=== PATIENT | male | born 1980 | race Caucasian/White ===

== ENCOUNTER 2018-04-18 20:36 | Emergency (ER) | payer BC, OTHER ==
[~2018-04-18] VITALS: Ht 175.3 cm; Wt 104.5 kg
[2018-04-18 20:43] VITALS: TEMP 36.9; Ht 175.3 cm; Wt 104.5 kg
[2018-04-18] MEDS ORDERED: SODIUM CHLORIDE 0.9% 1000ML 1,000 ML IV STA (21:29)
[2018-04-18] MEDS ORDERED: GI COCKTAIL PO STA (21:29)
[2018-04-18] MEDS ORDERED: FAMOTIDINE 20 MG TAB PO ONE (21:30)
[2018-04-18 21:31] VITALS: O2SAT 97
[2018-04-18] MEDS ORDERED: LIDOCAINE HCL 2% VISC SOLN 20 ML UDC ONE (21:33)
[2018-04-18] MEDS ORDERED: ALUMINUM/MAGNESIUM SUSP 30 ML UDC ONE (21:33)
--- NOTE | 2018-04-18 21:34 | EMERGENCY ROOM VISIT NOTE ---
History Report prepared by Amaibasher: Paola Alba Under the Supervision of: Dr. Addy Sylvester M.D. First contact with patient: 21:25 Chief Complaint: CHEST PAIN Stated Complaint: DISCOMFORT IN CHEST AREA,BODY WEARY AND HEAVY Nursing Triage Summary: Midsrenal nonradiating chest pain x 1 hr. Pt describes it as pressure. Pt denies SOD or any other sx's. Pt has no PMH of cardiac problems. History of Present Illness The patient is a 37 year old male who presents to the Emergency Room with complaints of chest pain beginning at 1930 tonight. He describes his pain as "discomfort and heaviness" in the center of his chest but notes this does not feel like his past acid reflux. However, he reports he ate about 30 minutes prior to his episode. He notes his pain is slightly better than when it began. The patient reports his grandfather had a heart attack but denies any nausea, SOB, fevers, chills, cough, or recent long travel. Source of History: patient Onset: 0 tonight Position: chest (center) Quality: other ("discomfort and heaviness" ) Associated Symptoms: No fevers, No chills, No SOB, No nausea Note: Negative recent long travel Review of Systems See HPI for pertinent positives and negatives. A total of ten systems were reviewed and were otherwise negative. Past Medical & Surgical Medical Problems: (1) No Known Active Medical Problems Family History Cancer Diabetes mellitus FHx: kidney disease High blood pressure Social History Smoking Status: Never Smoker Smokeless Tobacco Use: No Marital Status: single Housing Status: lives alone Occupation Status: employed Current/Historical Medications Miscellaneous Medications None (Patient States No Home Meds) Allergies Coded Allergies: Erythromycin (Verified Allergy, Intermediate, HIVES, RASH, 06/06/13) Physical Exam Vital Signs Date Time Temp Pulse Resp B/P (MAP) Pulse Ox O2 Delivery O2 Flow Rate FiO2 04/18/18 22:51 92 24 134/97 97 04/18/18 22:30 90 16 154/94 95 Room Air 04/18/18 21:44 96 04/18/18 21:31 97 Room Air 04/18/18 21:29 97 Room Air 04/18/18 20:43 36.9 96 18 157/107 97 Room Air Physical Exam GENERAL: Awake, alert, well-appearing, in no distress HENT: Normocephalic, atraumatic. Oropharynx unremarkable. Mucous membranes are dry. EYES: Normal conjunctiva. Sclera non-icteric. NECK: Supple. No nuchal rigidity. FROM. No JVD. RESPIRATORY: Clear to auscultation. CARDIAC: Regular rate, normal rhythm. Extremities warm and well perfused. Pulses equal. ABDOMEN: Soft, non-distended. Mild epigastric discomfort without discrete ttp. No rebound or guarding. No masses. RECTAL: Deferred. MUSCULOSKELETAL: Chest examination reveals no tenderness. The back is symmetrical on inspection without obvious abnormality. There is no CVA tenderness to palpation. No joint edema. LOWER EXTREMITIES: Calves are equal size bilaterally and non-tender. No edema. No discoloration. NEURO: Normal sensorium. No sensory or motor deficits noted. SKIN: No rash or jaundice noted. Medical Decision & Procedures ER Provider Diagnostic Interpretation: Radiology results as stated below per my review and radiologist interpretation: SINGLE VIEW CHEST CLINICAL HISTORY: Atypical chest pain. FINDINGS: An AP, portable, upright chest radiograph is compared to study dated 06/06/2013. The cardiomediastinal silhouette is unremarkable. The lungs and pleural spaces are clear. No pneumothorax is seen. The bony thorax is grossly intact. IMPRESSION: No active disease in the chest. Electronically signed by: Gregory Sanchez M.D. 04/18/2018 9:56 PM Laboratory Results 04/18/18 21:25 Red Blood Count 5.02, Mean Corpuscular Volume 89.2, Mean Corpuscular Hemoglobin 31.7, Mean Corpuscular Hemoglobin Concent 35.5, Mean Platelet Volume 10.0, Neutrophils (%) (Auto) 69.4, Lymphocytes (%) (Auto) 19.7, Monocytes (%) (Auto) 6.9, Eosinophils (%) (Auto) 2.9, Basophils (%) (Auto) 0.6, Neutrophils # (Auto) 7.44, Lymphocytes # (Auto) 2.11, Monocytes # (Auto) 0.74, Eosinophils # (Auto) 0.31, Basophils # (Auto) 0.06 04/18/18 21:25 Test 04/18/18 21:25 White Blood Count 10.71 K/uL (4.8-10.8) Red Blood Count 5.02 M/uL (4.7-6.1) Hemoglobin 15.9 g/dL (14.0-18.0) Hematocrit 44.8 % (42-52) Mean Corpuscular Volume 89.2 fL (80-100) Mean Corpuscular Hemoglobin 31.7 pg (25-34) Mean Corpuscular Hemoglobin Concent 35.5 g/dl (32-36) Platelet Count 232 K/uL (130-400) Mean Platelet Volume 10.0 fL (7.4-10.4) Neutrophils (%) (Auto) 69.4 % Lymphocytes (%) (Auto) 19.7 % Monocytes (%) (Auto) 6.9 % Eosinophils (%) (Auto) 2.9 % Basophils (%) (Auto) 0.6 % Neutrophils # (Auto) 7.44 K/uL (1.4-6.5) Lymphocytes # (Auto) 2.11 K/uL (1.2-3.4) Monocytes # (Auto) 0.74 K/uL (0.11-0.59) Eosinophils # (Auto) 0.31 K/uL (0-0.5) Basophils # (Auto) 0.06 K/uL (0-0.2) RDW Standard Deviation 38.2 fL (36.4-46.3) RDW Coefficient of Variation 11.9 % (11.5-14.5) Immature Granulocyte % (Auto) 0.5 % Immature Granulocyte # (Auto) 0.05 K/uL (0.00-0.02) Anion Gap 7.0 mmol/L (3-11) Est Creatinine Clear Calc Drug Dose 130.7 ml/min Estimated GFR () 121.3 Estimated GFR (Non- 104.6 BUN/Creatinine Ratio 12.7 (10-20) Calcium Level 9.0 mg/dl (8.5-10.1) Total Bilirubin 0.4 mg/dl (0.2-1) Direct Bilirubin 0.1 mg/dl (0-0.2) Aspartate Amino Transf (AST/SGOT) 21 U/L (15-37) Alanine Aminotransferase (ALT/SGPT) 43 U/L (12-78) Alkaline Phosphatase 130 U/L (45-117) Troponin I < 0.015 ng/ml (0-0.045) Total Protein 7.8 gm/dl (6.4-8.2) Albumin 3.8 gm/dl (3.4-5.0) Lipase 218 U/L (73-393) Medications Administered Medications (Trade) Dose Ordered Sig/Lenore Route Start Time Stop Time Status Last Admin Dose Admin Sodium Chloride 1,000 ml @ 999 mls/hr Q1H1M STAT IV 04/18/18 21:29 04/18/18 22:29 DC 04/18/18 21:39 999 MLS/HR Famotidine (Pepcid Tab) 20 mg NOW ONCE PO 04/18/18 21:30 04/18/18 21:32 DC 04/18/18 21:40 20 MG Lidocaine HCl (Viscous Lidocaine 2% Soln) 20 ml STK-MED ONCE .ROUTE 04/18/18 21:33 04/18/18 21:34 DC 04/18/18 21:40 20 ML Al Hydroxide/Mg Hydroxide (Maalox Susp) 30 ml STK-MED ONCE .ROUTE 04/18/18 21:33 04/18/18 21:34 DC 04/18/18 21:40 30 ML ECG Per My Interpretation Indication: chest pain Rate (beats per minute): 97 Rhythm: normal sinus Findings: no acute ischemic change, other (normal axis) ED Course 1926: The patient was evaluated in room A12. A complete history and physical exam was performed. 2219: I reevaluated the patient. Discussed results and discharge instructions: He verbalized understanding and agreement. The patient is ready for discharge. Medical Decision I reviewed the patient's past medical history, medications, and the nursing notes as described above. Differential diagnosis: Etiologies such as cardiac ischemia, aortic dissection, pulmonary embolism, pneumonia, pneumothorax, musculoskeletal, infections, pericarditis, myocarditis , esophageal rupture, gastrointestinal, as well as others were entertained. The patient is a 37 y/o gentleman with a pmhx of GERD on H2B and PPI who presents to the emergency department with SSCP/epigastric pain [employer]UT [employer]TER [employer] per HPI. On arrival the patient is in NAD, AFVSS. On exam the patient has mild epigastric discomfort without discrete ttp. EKG unremarkable. CXR negative. Labs unremarkable including WBC and troponin wnl. Patient was given pepcid and GI cocktail with resolution of sx. 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 Moreover, Heart score 1, low risk, acs unlikely. PERC negative PE not likely. Not positional, pericarditis not likely. No tearing pain and equal pulses, dissection not likely. Given resolution of sx with GERD tx, most likely related to reflux. Plan for pcp f/u. Findings and plan for follow-up reviewed with patient. Patient agreeable and d/c'd per discharge instructions. Medication Reconcilliation Current Medication List: was personally reviewed by me Blood Pressure Screening Patient's blood pressure: Elevated blood pressure Blood pressure disposition: Elevated BP felt to be situational Impression Primary Impression: Acid reflux Additional Impression: Substernal chest pain Scribe Attestation The scribe's documentation has been prepared under my direction and personally reviewed by me in its entirety. I confirm that the note above accurately reflects all work, treatment, procedures, and medical decision making performed by me. Departure Information Dispostion Home / Self-Care Referrals No Doctor, Assigned (PCP) Forms Call Back Authorization, HOME CARE DOCUMENTATION FORM, IMPORTANT VISIT INFORMATION Patient Instructions ED Chest Pain Atypical Unkn Cause, ED GERD, My [facility] Additional Instructions Please follow up with your primary care physician in the next 1-3 days for re- evaluation. Your symptoms are likely due to your history of acid reflux. Otherwise, your exam, EKG, chest xray, and lab results did not show signs of an emergent condition at this time. Continue your current medications. Additionally take [id number] Mylanta or Tums for additional acid relief as needed. Drink plenty of fluids to ensure hydration. Return to the emergency department for worsening symptoms as described in the accompanying instructions. Problem Qualifiers
[2018-04-18 21:48] LABS: BASO % 0.6 %; BASO ABS # 0.06 K/uL (0-0.2); EOS % 2.9 %; EOS ABS # 0.31 K/uL (0-0.5); HEMATOCRIT 44.8 % (42-52); HEMOGLOBIN 15.9 g/dL (14.0-18.0); IG# 0.05 K/uL (0.00-0.02); LYMPH % 19.7 %; LYMPH ABS # 2.11 K/uL (1.2-3.4); MEAN CELL VOLUME 89.2 fL (80-100); MEAN CORPUSCULAR HEMOGLOBIN 31.7 pg (25-34); MEAN CORPUSCULAR HGB CONC 35.5 g/dl (32-36); MONO % 6.9 %; MONO ABS # 0.74 K/uL (0.11-0.59); NEUT % 69.4 %; NEUT ABS # 7.44 K/uL (1.4-6.5); PLATELET COUNT 232 K/uL (130-400); RED CELL DISTRIBUTION WIDTH CV 11.9 % (11.5-14.5); RED CELL DISTRIBUTION WIDTH SD 38.2 fL (36.4-46.3); WHITE BLOOD COUNT 10.71 K/uL (4.8-10.8)
--- NOTE | 2018-04-18 21:57 | DIAGNOSTIC IMAGING REPORT ---
SINGLE VIEW CHEST CLINICAL HISTORY: Atypical chest pain. FINDINGS: An AP, portable, upright chest radiograph is compared to study dated 06/06/2013. The cardiomediastinal silhouette is unremarkable. The lungs and pleural spaces are clear. No pneumothorax is seen. The bony thorax is grossly intact. IMPRESSION: No active disease in the chest. Electronically signed by: Gregory Sanchez M.D. 04/18/2018 9:56 PM Dictated Date/Time: 04/18/2018 9:55 PM
[2018-04-18 22:12] LABS: ALBUMIN 3.8 gm/dl (3.4-5.0); ALKALINE PHOSPHATASE 130 U/L (45-117); ALT/SGPT 43 U/L (12-78); AST/SGOT 21 U/L (15-37); BLOOD UREA NITROGEN 12 mg/dl (7-18); CARBON DIOXIDE 26 mmol/L (21-32); CREATININE 0.94 mg/dl (0.60-1.40); GLUCOSE 133 mg/dl (70-99); LIPASE 218 U/L (73-393); POTASSIUM 3.4 mmol/L (3.5-5.1); SODIUM 139 mmol/L (136-145); TOTAL PROTEIN 7.8 gm/dl (6.4-8.2)
[2018-04-18 22:51] VITALS: BP 134/97; PULSE 92; O2SAT 97
== END 2018-04-18 22:50 | disposition home or self-care (01) ==
LOC: C.EDB 20:37 → C.EDA 22:50
DX: K21.9 Gastro-esophageal reflux disease without esophagitis (principal); R07.2 Precordial pain; Z88.1 Allergy status to other antibiotic agents